=== PATIENT | female | born 1945 | race Caucasian/White ===

== ENCOUNTER 2019-03-13 09:07 | Day surgery (SDC) | payer MEDICARE, OTHER ==
[2019-03-13] MEDS ORDERED: Lactated Ringers 1,000 ML IV SCH ×2 (10:30→12:45)
[2019-03-13] MEDS ORDERED: Cyanocobalamin (Vitamin B12) 1,000 MCG/ML SDV IM ONE (10:30)
[2019-03-13] MEDS ORDERED: Glycopyrrolate 0.2 MG/ML 2 ML SDV IVPUSH ONE (10:30)
[2019-03-13] MEDS ORDERED: MVI, Adult with Vitamin K 10 ML, Thiamine 200 MG, Chromium/Copper/Mang/Selen/Zn 1 ML in... IV ONE ×4 (10:30)
[2019-03-13] MEDS ORDERED: Sodium Chloride 0.9% 1,000 ML IV SCH (11:30)
[2019-03-13] MEDS ORDERED: Hydrocortisone Sodium Succinate 100 MG/2 ML SDV IV PRN (11:30)
[2019-03-13] MEDS ORDERED: diphenhydrAMINE 50 MG/ML SDV IVPUSH PRN (11:30)
[2019-03-13] MEDS ORDERED: Famotidine 20 MG/2 ML SDV IV PRN (11:30)
[2019-03-13] MEDS ORDERED: Iron Sucrose Complex 500 MG in Sodium Chloride 0.9% 250 ML IV ONE (11:30)
[2019-03-13] MEDS ORDERED: fentaNYL 100 MCG/2 ML SDV ONE (12:11)
[2019-03-13] MEDS ORDERED: Propofol 200 MG/20 ML SDV ONE (12:11)
[2019-03-13] MEDS ORDERED: Pantoprazole 40 MG Vial IVPUSH ONE (14:26)
--- NOTE | 2019-03-14 13:00 | OR ---
DATE OF PROCEDURE: 03/13/2019 PREOPERATIVE DIAGNOSIS: Epigastric pain and dysphagia, status post Camilo-en-Y gastric bypass. 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 OPERATIVE PROCEDURE: Upper GI endoscopy with biopsies of gastric pouch for CLOtest. ANESTHESIA: IV sedation. INDICATION FOR PROCEDURE: A 74-year-old, status post Camilo-en-Y gastric bypass many years ago, presenting with some dysphagia and epigastric discomfort. She had been treating this with some [id number] omeprazole and Zantac without significant improvement. She had a similar episode some time ago, which was treated with intensification of medical management as well as dilation of the gastrojejunostomy and has done well from that point until recently. The plan was to proceed with upper GI endoscopy with biopsies and/or dilation as indicated. Potential risks including bleeding and perforation were discussed, and the patient wishes to proceed. DETAILS OF PROCEDURE: The patient was taken to the operating room and placed in a left lateral decubitus position. IV sedation was administered, after which the upper GI endoscope was passed orally through the length of the esophagus and into the gastric pouch, from there through the gastrojejunostomy roughly 20 cm into the Camilo limb. Findings included normal proximal esophagus and esophageal body. At the EG junction area, there was some coffee-ground type material present. There appeared to be some distal esophagitis along with some pouch gastritis. No active bleeding was seen, but there was again some scattered coffee-ground material indicating some recent bleeding in that area. No true ulcers could be seen and there was no stricturing at gastrojejunostomy. The remainder of the visualized Camilo limb was unremarkable. At this point, biopsies were obtained from the gastric pouch, sent for CLOtest for H. pylori. Minimal bleeding from the biopsy sites was seen and the procedure then concluded. The plan will be to proceed with continuation of the Protonix and Zantac. We will also add liquid Carafate 500 mg q.i.d. on an empty stomach and she will be set up for followup with Dee Polanco at [facility] in about 6 weeks. One additional note is the patient's ferritin was quite low at around 11 and she was given Venofer 500 mg IV today and she will be given Rx to have that repeated in her hometown [place] in 7 to 14 days, and should be following with Dee Polanco in 6 weeks. Mario Alberto Corral MD /[id number]
== END 2019-03-13 16:50 | disposition home or self-care (01) ==
LOC: JP.SDS 09:07
PROVIDERS: ATTEND Surgery
DX: K20.9 Esophagitis, unspecified (principal); K95.89 Other complications of other bariatric procedure; Z91.041 Radiographic dye allergy status; Z91.048 Other nonmedicinal substance allergy status
CPT/HCPCS: 43239; 87081; C9113; J1756; J2704; J3010; J3411; J3420; J3490; J7030; J7050; J7120